=== PATIENT | female | born 1985 | race Caucasian/White ===

== ENCOUNTER → 2016-11-25 | Outpatient (CLI) | payer BC ==
[~2016-11-25] MED LIST: CALC500C3 PO; IBUP-1050 PO; PRENTAB26 PO
--- NOTE | 2016-11-25 11:26 | Progress Note ---
Progress Note Date of Service Nov 25, 2016. Progress Note HSG done for infertility in radiology suite Pt tolerated procedure well Discharged home in stable hemostasis Radiologist will dictate procedure report
--- NOTE | 2016-11-25 11:51 | DIAGNOSTIC IMAGING REPORT ---
HYSTEROSALPINGOGRAM CLINICAL HISTORY: FEMALE INFERTILITY COMPARISON STUDY: No previous studies for comparison. TECHNIQUE: A hysterosalpingogram was performed. As such, the cervix was cannulated and 50 cc of Optiray 300 was instilled. 3 fluoroscopic images were obtained. Fluoroscopy time was 0.8 minutes. FINDINGS: Uterine morphology is normal. Both fallopian tubes are patent with free spillage bilaterally. IMPRESSION: Normal hysterosalpingogram. Patent bilateral fallopian tubes. Electronically signed by: Arcadio Grover M.D. 11/25/2016 11:49 AM Dictated Date/Time: 11/25/2016 11:48 AM
== END | disposition home or self-care (01) ==
LOC: C.RAD 10:08
PROVIDERS: ATTEND Obstetrics & Gynecology
DX: N97.9 Female infertility, unspecified (principal)

== ENCOUNTER 2017-10-11 10:08 | Inpatient (IN) | payer BC ==
[~2017-10-11] VITALS: Ht 165.1 cm; Wt 85.0 kg
[2017-10-11] MEDS ORDERED: CHOL1000 PO (10:55)
[2017-10-11 10:58] VITALS: Ht 165.1 cm; Wt 85.0 kg
[2017-10-11] MEDS ORDERED: LACTATED RINGER'S 1000ML 500 ML IV PRN ×2 (11:28→20:11)
[2017-10-11] MEDS ORDERED: LACTATED RINGER'S 1000ML 1,000 ML IV SCH ×2 (11:29→21:00)
[2017-10-11] MEDS ORDERED: LACTATED RINGER'S 1000ML 1,000 ML IV PRN (11:29)
[2017-10-11] MEDS ORDERED: OXYTOCIN 30 UNITS/500ML NSS IV PRN ×2 (11:30→21:00)
--- NOTE | 2017-10-11 11:37 | History and Physical ---
History & Physical Date & Time of Service: Oct 11, 2017 at 11:30 Chief Complaint: Induction Primary Care Physician: Blanka Kelly M.D. History of Present Illness Source: patient Patient is a 31 yo at 40.2 wks who is scheduled for IOL at term due to Oligohydramnios UYEN was 4.2 cm yesterday in office She has no complaints today No ctxs/ LOF/VB +FM No fever/ chills/ HOFF/ Change in vision/ N&V Her has been uncomplicated GBS negative h/o FT in 2013 No h/o STD's, no chlamydia/ GC/ HSV Past Medical/Surgical History Medical Problems: (1) Dehydration (2) Exudative tonsillitis (3) induction of labor/oligohydramnios (4) Lipoma (5) Oligohydramnios Surgical Problems: (1) H/O wisdom tooth extraction (2) Hx of appendectomy Family History Diabetes mellitus FHx: cancer Hypertension Social History Smoking Status: Never Smoker Smokeless Tobacco Use: No Alcohol Use: none Drug Use: none Marital Status: Occupational Status: employed Immunizations History of Influenza Vaccine: Unknown History of Tetanus Vaccine?: utd Allergies Coded Allergies: Sulfa Drugs (Verified Allergy, Intermediate, HIVES, 10/11/17) Codeine (Verified Allergy, Mild, HIVES, 10/11/17) HIVES Hydrocodone (Verified Allergy, Mild, HIVES, 10/11/17) Home Medications Scheduled Cholecalciferol (Vitamin D3), 1 TAB PO DAILY Multivit/Min/Iron/Fol Ac/Pren ( Vitamin), 1 TAB PO QAM Review of Systems Constitutional: No fever, No chills, No sweats, No weight loss, No weakness, No fatigue, No problem reported Respiratory: No cough, No sputum, No wheezing, No shortness of breath, No dyspnea on exertion, No dyspnea at rest, No hemoptysis, No problem reported Cardiovascular: No chest pain, No orthopnea, No PND, No edema, No claudication , No palpitations, No problem reported Physical Exam General Appearance: WD/WN, no apparent distress Head: normocephalic, atraumatic Neck: supple, no adenopathy Respiratory/Chest: chest non-tender, lungs clear Cardiovascular: regular rate, rhythm Abdomen/GI: non tender, soft, + pertinent finding (gravid) Genitourinary - Female: + pertinent finding (cervix 2-3 cm/ 60%/ -3, vertex) Extremities/Musculoskelatal: normal inspection, no calf tenderness, no pedal edema, non-tender Skin: normal color, warm/dry, no rash Diagnostics Diagnostic Radiology NST: reactive, normal baseline and variability, no decels [place]: irregular ctxs q 4-5 min Impression Assessment and Plan 31 yo at 40.2 wks with oligohydramnios VSS Afebrile FHR reassuring GBS negative Plan admit, monitor, pitocin and then AROM when able All questions were answered Advanced Directives Existing Living Will: No Existing Power of Behavior Clinician: No Resuscitation Status VTE Prophylaxis Will order VTE Prophylaxis: Yes
[2017-10-11 11:49] LABS: HEMATOCRIT 37.4 % (37-47); HEMOGLOBIN 12.6 g/dL (12.0-16.0); MEAN CELL VOLUME 95.4 fL (80-100); MEAN CORPUSCULAR HEMOGLOBIN 32.1 pg (25-34); MEAN CORPUSCULAR HGB CONC 33.7 g/dl (32-36); MEAN PLATELET VOLUME 11.8 fL (7.4-10.4); PLATELET COUNT 118 K/uL (130-400); RED CELL DISTRIBUTION WIDTH CV 13.8 % (11.5-14.5); RED CELL DISTRIBUTION WIDTH SD 47.5 fL (36.4-46.3); WHITE BLOOD COUNT 10.23 K/uL (4.8-10.8)
--- NOTE | 2017-10-11 15:29 | OB/GYN Progress Note ---
POLITICAL RESEARCH SCIENTIST Progress Note Date of Service: Oct 11, 2017. Patient is seen She feels well, started to feel some ctxs but not very painful yet No LOF/VB +FM's No HOFF/ Change in vision FHR categ I [place]: ctxs q2-4 min, pitocin is at 10 miu/min BP's WNL, no protein in urine dips Last 24 Hours Test 10/11/17 11:40 10/11/17 15:21 White Blood Count 10.23 K/uL Red Blood Count 3.92 M/uL Hemoglobin 12.6 g/dL Hematocrit 37.4 % Mean Corpuscular Volume 95.4 fL Mean Corpuscular Hemoglobin 32.1 pg Mean Corpuscular Hemoglobin Concent 33.7 g/dl RDW Standard Deviation 47.5 fL RDW Coefficient of Variation 13.8 % Platelet Count 118 K/uL Mean Platelet Volume 11.8 fL Mildly low platelets, were 139 at 28 weeks Most likely gestational tricha Will check LFT's Continue to monitor closely
[2017-10-11 16:41] LABS: ALBUMIN 2.8 gm/dl (3.4-5.0); CALCIUM 8.3 mg/dl (8.5-10.1); CREATININE 0.55 mg/dl (0.60-1.20); POTASSIUM 3.7 mmol/L (3.5-5.1); TOTAL PROTEIN 6.7 gm/dl (6.4-8.2)
--- NOTE | 2017-10-11 18:42 | OB/GYN Progress Note ---
LABORER CEMENT GUN PLACING Progress Note Date of Service: Oct 11, 2017. Patient is seen and examined Feels regular ctxs and getting more painful Desires epidural for pain VSS Afebrile Labs WNL VE; 4/ 70%/ -3, attempted AROM but no bag felt, small bloody mucus FHR categ I [place]: ctxs q2-3 min, pitocin at 14 miu/min Continue to monitor closely Epidural for pain
[2017-10-11] MEDS ORDERED: BUPIVACAINE 0.25% 30 ML VIAL ONE (18:50)
[2017-10-11] MEDS ORDERED: FENTANYL CITRATE INJ 50 MCG/1 ML 2 ML VIAL ONE (18:51)
[2017-10-11] MEDS ORDERED: EpHEDrine SULFATE INJ 50 MG/ML AMP ONE (18:51)
[2017-10-11] MEDS ORDERED: FENTANYL 2MCG/ML ROPIV 1.25MG/ML 100ML BAG ONE (18:52)
--- NOTE | 2017-10-11 20:10 | OB/GYN Progress Note ---
HEMATOLOGY NURSE EDUCATOR Progress Note Date of Service: Oct 11, 2017. Patient had epidural FHR during sitting was 80's similar to maternal pulse Pitocin has been off 120-130's since then, with good variability, accels and early short lasting decels with ctxs VE: 7/ 80%/ -1, FHR increased to 140's after VE Continue to monitor closely Anticipate
[2017-10-11] MEDS ORDERED: NALOXONE HCL INJ 1 MG in SODIUM CHLORIDE 0.9% 1000ML 1,000 ML IV PRN (20:11)
[2017-10-11] MEDS ORDERED: DiphenhydrAMINE HCL 50 MG/ML VIAL IV PRN (20:15)
[2017-10-11] MEDS ORDERED: NALOXONE HCL INJ 0.4 MG/1 ML VIAL/CARP IV PRN (20:15)
[2017-10-11] MEDS ORDERED: FENTANYL 2MCG/ML ROPIV 1.25MG/ML 100ML BAG EPI PRN (20:15)
[2017-10-11] MEDS ORDERED: NALBUPHINE HCL INJ 10 MG/ML 1ML AMP IV PRN (20:15)
[2017-10-11] MEDS ORDERED: EpHEDrine SULFATE INJ 50 MG/ML AMP IV PRN (20:15)
[2017-10-11] MEDS ORDERED: ONDANSETRON INJ 2 MG/ML 2 ML VIAL IV PRN (20:15)
[2017-10-11] MEDS ORDERED: HYDROCORTISONE ACETATE 25 MG SUPP PR PRN (21:00)
[2017-10-11] MEDS ORDERED: BENZOCAINE 20% AER SPR 82.5 GM CAN EXT PRN (21:00)
[2017-10-11] MEDS ORDERED: SUPERCREAM 0.870 % 15GM JAR EXT PRN (21:00)
[2017-10-11] MEDS ORDERED: DIPHTHERIA/TETANUS/PERTUSSIS 0.5 ML SYR/VIAL IM. ONE (21:00)
[2017-10-11] MEDS ORDERED: ACETAMINOPHEN 325 MG TAB PO PRN (21:00)
[2017-10-11] MEDS ORDERED: MEASLES, MUMPS & RUBELLA VIRUS VIAL SQ. ONE (21:00)
[2017-10-11] MEDS ORDERED: LANOLIN OINT EXT PRN (21:00)
--- NOTE | 2017-10-11 21:25 | Anesthesia Procedure Note ---
Anesthesia Epidural Removal Nt Date & Time Oct 11, 2017 at 21:25 Vital Signs Pain Intensity: 1 Notes Mental Status: alert / awake / arousable, participated in evaluation Nausea / Vomiting: adequately controlled Pain: adequately controlled Airway Patency, RR, SpO2: stable & adequate BP & HR: stable & adequate Hydration State: stable & adequate Neuraxial Anesthesia: was administered Anesthetic Complications: no major complications apparent, pt satisfied with anesthetic care Epidural: removed without complications, with tip intact
--- NOTE | 2017-10-11 23:24 | DELIVERY SUMMARY ---
DATE OF OPERATION: 10/11/2017 DATE OF DELIVERY: 10/11/2017 TIME OF DELIVERY OF BABY: 2037 p.m. TIME OF DELIVERY OF PLACENTA: 2055 p.m. DETAILS OF DELIVERY: The patient was found to be fully dilated and desired to push. She pushed through 3 contractions for about 6 minutes and delivered the head without difficulty. There was nuchal cord around the neck x2. Those were reduced easily while delivering the shoulders and the body. The baby was handed to the mother, where mouth and nose were suctioned. The cord was clamped x2 and cut at 1 minute delay. Then cord blood was obtained. Per patient's request the cord blood was collected into the donation kit, sent out in its special bag. The perineum and vagina were checked for lacerations. There was a second degree perineal laceration at the posterior fourchette. It was confirmed with rectal exam. Excellent sphincter tone was noted. Gloves were changed. This laceration was repaired with 2-0 Vicryl in a running-locked fashion, bringing the perineal body muscles together and bulbocavernosus muscles together and the skin in a subcuticular fashion. Excellent hemostasis was achieved. Rectal exam was repeated. No sutures were felt and excellent sphincter tone was noted again. Gloves were changed. The placenta was found to be in the vagina and delivered spontaneously as intact and complete. Uterus was explored and found to be empty. Lower segment was cleared off all clots and debris. Fundus was firm. EBL was 200 ml. Mom and baby tolerated the procedure well. Sponge, lap, needle count was correct x2. Baby was a viable male infant. Apgars 9/9. Weight 3161 gr. No complications happened and I was present during the whole procedure. I attest to the content of the Intraoperative Record and any orders documented therein. Any exceptions are noted below. MTDD
[2017-10-12] VITALS: BP 109/70; PULSE 94; TEMP 36.9; O2SAT 97
[2017-10-12] MEDS: IBUPROFEN 600 MG TAB PO PRN ×4 (00:23→19:21)
[2017-10-12 04:15] VITALS: BP 107/71; PULSE 83; TEMP 36.8; O2SAT 98
--- NOTE | 2017-10-12 06:15 | Discharge Instructions ---
Discharge Instructions Date of Service Oct 12, 2017. Admission Reason for Admission: Induction Discharge Discharge Diagnosis / Problem: Discharge Goals Goal(s): Routine recovery after delivery Medications Continue Dispensed Medications: lansinoh Activity Recommendations Activity Limitations: as noted below ACTIVITY RECOMMENDATIONS: * Gradual return to full activity over the next 2-3 weeks. * No lifting - nothing heavier than baby over the next 2-3 weeks. * Do not engage in vigorous exercise, sexual activity or sports until cleared by your physician. * Do not drive or operate any motorized equipment until cleared by your physician. * You may shower/bathe daily. BREAST CARE: If you are not breast feeding: * Wear a supportive bra 24 hours a day for one to two weeks. * Avoid stimulating your breasts and nipples as much as possible during the first few weeks after delivery. * When taking a shower, have the warm water hit your back, not breasts. * When your breasts feel full, apply ice packs. Usually three to four times a day helps ease the discomfort. * Take a mild pain medication (Tylenol/Motrin) when you are uncomfortable. If breast feeding: * Use breast milk to lubricate nipples. Lansinoh cream may be used for sore nipples. You do not need to remove cream prior to breast feeding. If using a different brand of cream, check the label for directions regarding removal of cream prior to nursing. * Wear a supportive bra. * If having problems with breasts or breast feeding, call a it solutions sales consultant or your health care provider. EPISIOTOMY CARE: After delivery, if you have an episiotomy (stitches), the following steps will ease discomfort and aid healing. * For the first 24 hours after delivery, place ice packs next to your episiotomy to help reduce swelling. * After the first 24 hour-period, sitz baths, either portable or in the tub, are suggested. A shower with a shower arm sprayed over the episiotomy may be comforting. * Sandy care should be done after each voiding and bowel movement. Squirt warm water from a plastic bottle over the perineum (region of the body between the anus and urinary opening) and pat dry. * Use Dermoplast to ease discomfort. Shake container. [place] directly over the episiotomy. * Place a Tucks on a clean sanitary pad next to your episiotomy. OVER THE COUNTER MEDICATION: * For discomfort or pain, you may use Acetaminophen (Tylenol), Ibuprofen (Advil ), or Naproxen (Aleve) following the package directions. * For constipation you may use Colace following the package directions. SPECIAL CARE INSTRUCTIONS: When you are discharged from the hospital, it is important for you to follow the instructions listed below: * During the first week at home, you should be able to care for yourself and your baby. In addition, the usual light household activities are encouraged. * Limit your activities to the way you feel. Do not try to clean the house or move furniture. Be sensible. * If you actively engage in sports and have done so up until the time of your delivery, you may resume these activities as soon as you feel able. This may take up to one month or even longer. Use good judgment. * Continue to take your vitamins for at least six weeks after the of your baby. * Your diet need not be limited unless you were on a special diet before your delivery. Breast-feeding mothers need around 2500 calories per day and at least 64-80 ounces of fluid per day (8 to 10 glasses). * You should eat foods from the four major food groups. Crash diets or fad diets are to be avoided. Eating lean meats, fresh fruits and vegetables, low-fat dairy products, high fiber foods and a regular exercise program, will help you get back to your pre- weight without putting your health at risk. * Constipation is sometimes a problem after delivery. Take a mild laxative as needed. If breast feeding, Milk of Magnesia is acceptable to use. You may use a suppository or Fleets enema if no episiotomy. * A daily shower or tub bath is suggested. Be sure to thoroughly and gently dry the perineum. * A bloody vaginal discharge will usually continue until around four weeks post . A small amount of bleeding may continue for as long as six weeks. Vaginal discharge changes from the bright red bleeding after delivery to pink then brownish and finally yellowish-pink before becoming white and disappearing. * Bleeding may increase with activity. Your first period may come in 4-8 weeks. If you are breast feeding, your period may be delayed even longer. * [place] (sex) can begin whenever both you and your partner feel comfortable and do not have any form of genital infection. It is recommended that you wait until after your return appointment and discuss with your physician. If you have questions, please talk to your health care practitioner. A condom should be used to prevent infection and . * Foreplay, gentle intercourse and lubrication is very important the first several times to prevent pain. A water-based lubricant such as K-Y jelly or Astroglide may be used. * Tampons may be used six weeks after delivery. * Douching should be avoided for 6 weeks after delivery. * If you have RH negative blood and your baby is RH positive, you will receive RHOGAM by injection prior to discharge. The nurse will give you a card to keep with you that has the date and place that you received RHOGAM after delivery. * During your care, you had a Rubella screen done to check for the presence of rubella antibodies in your blood. If your test was negative, you will receive a Rubella vaccine prior to discharge. This vaccine may cause a fever, soreness at the injection site and flu-like symptoms. If these symptoms persist, notify your health care practitioner. is not advised for three months after a Rubella vaccine. There is a higher chance of having a baby with defects if conceived within three months of getting the vaccine. * If you were discharged 24 hours from delivery or before 48 hours: Visiting nurses will come to your home 48 hours after discharge to assess you and your baby. The visiting nurse will meet with you while you are in the hospital to arrange a time and get directions to your home. * Verbalizes understanding of car seat law as reviewed with patient nursing. * Car Seat hand-out given and reviewed with patient by nursing. * Shaken baby information reviewed with patient by nursing. Call you doctor if: * Heavy bleeding (saturating several pads an hour) or passing clots the size of your fist. * A fever >101 degrees F (38.3 degrees C) on two occasions four hours apart and/or chills. * Unusual pain in the pelvic or vaginal areas. * "Baby Blues" lasting longer than two weeks. If you have any questions or concerns, call your health care practitioner at . FOLLOW-UP VISIT: * Please call the office at to schedule a 6 week examination. It is important you keep this appointment. * It is important for you to make arrangements for either yearly or twice yearly check-ups thereafter. . Current Hospital Diet Patient's current hospital diet: Regular OB Diet Discharge Diet Recommended Diet: Regular Diet Pending Studies Studies pending at discharge: no Medical Emergencies . Who to Call and When: Medical Emergencies: If at any time you feel your situation is an emergency, please call 911 immediately. . Non-Emergent Contact Non-Emergency issues call your: Securities Dealer, Surgeon Call Non-Emergent contact if: you have a fever, temperature is above 100.5, your pain is not controlled, your pain is worsening, your pain is unusual for you, your pain is concerning you, you have any medication questions . . "Provider Documentation" section prepared by Chase Smith. .
[2017-10-12 06:25] LABS: HEMATOCRIT 34.3 % (37-47); HEMOGLOBIN 11.8 g/dL (12.0-16.0); MEAN CELL VOLUME 94.8 fL (80-100); MEAN CORPUSCULAR HEMOGLOBIN 32.6 pg (25-34); MEAN CORPUSCULAR HGB CONC 34.4 g/dl (32-36); MEAN PLATELET VOLUME 11.8 fL (7.4-10.4); PLATELET COUNT 104 K/uL (130-400); RED CELL DISTRIBUTION WIDTH CV 13.9 % (11.5-14.5); RED CELL DISTRIBUTION WIDTH SD 47.7 fL (36.4-46.3)
--- NOTE | 2017-10-12 07:50 | Progress Note ---
Subjective Oct 12, 2017. Subjective conversation w/ patient Ambulation: ambulating normally Voiding: no voiding problems Passing Gas: Yes Diet Tolerance: Regular Diet Lochia: Small Feeding Type: Breast Feeding Review of Systems Constitutional: + fever Objective Vital Signs Date Time Temp Pulse Resp B/P (MAP) Pulse Ox O2 Delivery O2 Flow Rate FiO2 10/12/17 04:15 36.8 83 18 107/71 (83) 98 Room Air 10/12/17 00:00 97 Room Air 10/12/17 00:00 36.9 94 18 109/70 (83) 97 Room Air Physical Exam General Appearance: WELL-APPEARING Abdomen: non tender Fundus: Firm, Non-Tender Extremities: no pedal edema, no calf tenderness Laboratory Results Last 24 Hours Test 10/11/17 11:40 10/11/17 15:53 10/12/17 06:03 White Blood Count 10.23 K/uL 12.30 K/uL Red Blood Count 3.92 M/uL 3.62 M/uL Hemoglobin 12.6 g/dL 11.8 g/dL Hematocrit 37.4 % 34.3 % Mean Corpuscular Volume 95.4 fL 94.8 fL Mean Corpuscular Hemoglobin 32.1 pg 32.6 pg Mean Corpuscular Hemoglobin Concent 33.7 g/dl 34.4 g/dl RDW Standard Deviation 47.5 fL 47.7 fL RDW Coefficient of Variation 13.8 % 13.9 % Platelet Count 118 K/uL 104 K/uL Mean Platelet Volume 11.8 fL 11.8 fL Sodium Level 136 mmol/L Potassium Level 3.7 mmol/L Chloride Level 108 mmol/L Carbon Dioxide Level 19 mmol/L Anion Gap 9.0 mmol/L Blood Urea Nitrogen 6 mg/dl Creatinine 0.55 mg/dl Est Creatinine Clear Calc Drug Dose 158.1 ml/min Estimated GFR () 143.8 Estimated GFR (Non- 124.1 BUN/Creatinine Ratio 10.9 Random Glucose 68 mg/dl Calcium Level 8.3 mg/dl Total Bilirubin 0.3 mg/dl Aspartate Amino Transf (AST/SGOT) 12 U/L Alanine Aminotransferase (ALT/SGPT) 12 U/L Alkaline Phosphatase 116 U/L Lactate Dehydrogenase 160 U/L Total Protein 6.7 gm/dl Albumin 2.8 gm/dl Globulin 3.9 gm/dl Albumin/Globulin Ratio 0.7 Assessment and Plan Post- Day#: 1
[2017-10-12] MEDS: FERROUS SULFATE 325 MG TAB PO SCH (07:52)
[2017-10-12] MEDS: PRENATAL VITAMIN TAB PO SCH (07:52)
[2017-10-12] MEDS: DOCUSATE SODIUM 100 MG CAP PO SCH ×2 (07:52→19:21)
[2017-10-12 08:00] VITALS: BP 110/67; PULSE 74; TEMP 36.7
[2017-10-12 11:45] VITALS: BP 108/72; PULSE 98; TEMP 36.8
[2017-10-12 15:15] VITALS: BP 109/72; PULSE 89; TEMP 36.9
[2017-10-12 19:25] VITALS: BP 111/77; PULSE 93; TEMP 36.6
[2017-10-12] MEDS ORDERED: BISACODYL 5 MG TABEC PO SCH (20:00)
[2017-10-13 00:25] VITALS: BP 114/77; PULSE 79; TEMP 36.7; O2SAT 98
[2017-10-13] MEDS: IBUPROFEN 600 MG TAB PO PRN ×3 (00:41→16:32)
[2017-10-13] MEDS ORDERED: BISACODYL 10 MG SUPP PR PRN (07:00)
--- NOTE | 2017-10-13 07:36 | OB/GYN Progress Note ---
COFFEE BREWER Progress Note Date of Service: Oct 13, 2017. Patient is seen and examined. She feels well, no complaints. Likes to go home Ambulating without dizziness Voiding without difficulty Tolerating regular diet with out N&V Bleeding is minimal No fever/ chills/ CP/ SOB/ N&V/ Leg pain Breast feeding without problems Date Time Temp Pulse Resp B/P (MAP) Pulse Ox O2 Delivery O2 Flow Rate FiO2 10/13/17 00:25 36.7 79 16 114/77 (89) 98 Room Air 10/13/17 00:25 98 Room Air 10/12/17 19:25 36.6 93 18 111/77 (88) Room Air 10/12/17 15:15 36.9 89 18 109/72 (84) Room Air 10/12/17 11:45 Room Air 10/12/17 11:45 36.8 98 18 108/72 (84) Room Air 10/12/17 08:00 36.7 74 18 110/67 (81) Room Air Test 10/11/17 11:40 10/11/17 15:53 10/12/17 06:03 White Blood Count 10.23 12.30 H Red Blood Count 3.92 L 3.62 L Hemoglobin 12.6 11.8 L Hematocrit 37.4 34.3 L Mean Corpuscular Volume 95.4 94.8 Mean Corpuscular Hemoglobin 32.1 32.6 Mean Corpuscular Hemoglobin Concent 33.7 34.4 RDW Standard Deviation 47.5 H 47.7 H RDW Coefficient of Variation 13.8 13.9 Platelet Count 118 L 104 L Mean Platelet Volume 11.8 H 11.8 H Sodium Level 136 Potassium Level 3.7 Chloride Level 108 H Carbon Dioxide Level 19 L Anion Gap 9.0 Blood Urea Nitrogen 6 L Creatinine 0.55 L Est Creatinine Clear Calc Drug Dose 158.1 Estimated GFR () 143.8 Estimated GFR (Non- 124.1 BUN/Creatinine Ratio 10.9 Random Glucose 68 L Calcium Level 8.3 L Total Bilirubin 0.3 Aspartate Amino Transferase (AST) 12 L Alanine Aminotransferase (ALT) 12 Alkaline Phosphatase 116 Lactate Dehydrogenase 160 Total Protein 6.7 Albumin 2.8 L Globulin 3.9 Albumin/Globulin Ratio 0.7 L PE: General: Alert, orientedx3, NAD Abd: soft, NT, fundus firm, below Umbilicus Perineum intact, Lochia rubra minimal Ext; NT, no edema AP: 31 yo s/p , ppd# 2 VSS Afebrile doing well Continue routine care All questions were answered Discussed when to call D/C home , f/u in office
[2017-10-13 08:00] VITALS: BP 102/67; PULSE 75; TEMP 36.8; O2SAT 99
[2017-10-13] MEDS: PRENATAL VITAMIN TAB PO SCH ×2 (08:00→08:22)
[2017-10-13] MEDS: DOCUSATE SODIUM 100 MG CAP PO SCH (08:21)
[2017-10-13] MEDS: FERROUS SULFATE 325 MG TAB PO SCH (08:22)
[2017-10-13 16:35] VITALS: BP 116/79; PULSE 80; TEMP 36.7
[2017-10-13 17:30] VITALS: BP_DIAS 79; PULSE 80; TEMP 36.7
== END 2017-10-13 17:30 | disposition home or self-care (01) | DRG 775 ==
LOC: C.LD 10:08 → C.OBG 23:59
PROVIDERS: ADMIT Obstetrics & Gynecology; ATTEND Obstetrics & Gynecology
PROC: 0KQM0ZZ Repair Perineum Muscle, Open Approach (ICD-10-PCS; principal; 2017-10-11)
PROC: 3E033VJ Introduction of Other Hormone into Peripheral Vein, Percutaneous Approach (ICD-10-PCS; principal; 2017-10-11)
PROC: 10E0XZZ Delivery of Products of Conception, External Approach (ICD-10-PCS; principal; 2017-10-11)
DX: O41.03X0 Oligohydramnios, third trimester, not applicable or unspecified (principal); O69.81X0 Labor and delivery complicated by cord around neck, without compression, not applicable or unspecified; O70.1 Second degree perineal laceration during delivery; Z3A.40 40 weeks gestation of pregnancy; Z37.0 Single live birth